=== PATIENT | male | born 1970 | race Two or more races ===

== ENCOUNTER → 2016-08-01 | Outpatient (REF) | payer OTHER | LOC: M SMT 11:42 | PROVIDERS: ATTEND Nurse Practitioner Family | DX: R36.1 Hematospermia (principal) ==

== ENCOUNTER → 2018-08-23 | Outpatient (REF) | payer OTHER ==
[2018-08-23 13:40] LABS: APPEARANCE, URINE CLEAR (CLEAR); BACTERIA, URINE AUTO NEGATIVE (NEGATIVE); BILIRUBIN, URINE AUTO NEGATIVE (NEGATIVE); BLOOD, URINE BLOOD NEGATIVE (NEGATIVE); COLOR, URINE YELLOW (YELLOW); GLUCOSE, URINE (UA) AUTO NEGATIVE (NEGATIVE); KETONE, URINE AUTO NEGATIVE (NEGATIVE); LEUKOCYTE ESTERASE, URINE AUTO NEGATIVE (NEGATIVE); NITRITE, URINE AUTO NEGATIVE (NEGATIVE); PROTEIN, URINE AUTO NEGATIVE (NEGATIVE); RBC, URINE AUTO 0 /HPF (0-3); SPECIFIC GRAVITY URINE AUTO 1.012 (1.002-1.035); SQUAMOUS EPITHELIAL CELL UR AU 0 /HPF (0-6); UROBILINOGEN, URINE AUTO 0.2 mg/dL (0.0-2.0); WBC, URINE AUTO 0 /HPF (0-3)
[2018-08-23 15:11] LABS: CHLAMYDIA DNA AMPLIFICATION NEGATIVE (NEGATIVE); GC DNA AMPLIFICATION NEGATIVE (NEGATIVE)
== END ==
LOC: M SMT 12:41
PROVIDERS: ATTEND Nurse Practitioner Family
DX: R36.1 Hematospermia (principal)

== ENCOUNTER → 2018-12-07 | Outpatient (REF) | payer OTHER ==
[2018-12-07 13:39] LABS: APPEARANCE, URINE CLEAR (CLEAR); BACTERIA, URINE AUTO NEGATIVE (NEGATIVE); BILIRUBIN, URINE AUTO NEGATIVE (NEGATIVE); BLOOD, URINE BLOOD NEGATIVE (NEGATIVE); COLOR, URINE YELLOW (YELLOW); GLUCOSE, URINE (UA) AUTO NEGATIVE (NEGATIVE); KETONE, URINE AUTO NEGATIVE (NEGATIVE); LEUKOCYTE ESTERASE, URINE AUTO NEGATIVE (NEGATIVE); NITRITE, URINE AUTO NEGATIVE (NEGATIVE); PROTEIN, URINE AUTO NEGATIVE (NEGATIVE); RBC, URINE AUTO 0 /HPF (0-3); SPECIFIC GRAVITY URINE AUTO 1.011 (1.002-1.035); SQUAMOUS EPITHELIAL CELL UR AU 0 /HPF (0-6); UROBILINOGEN, URINE AUTO 0.2 mg/dL (0.0-2.0); WBC, URINE AUTO 1 /HPF (0-3)
== END ==
LOC: M SMT 12:45
PROVIDERS: ATTEND Nurse Practitioner Family
DX: R36.1 Hematospermia (principal)
CPT/HCPCS: 81001; 87086; G0463

== ENCOUNTER → 2018-12-14 | Outpatient (CLI) | payer OTHER ==
--- NOTE | 2018-12-14 10:11 | REP ---
Clinical: Right flank pain. Technique: Real time lucas scale and color ultrasound examination using curved array transducer. Findings: Bilateral kidneys are normal in contour, size, echogenicity, and reniform shape without hydronephrosis, nephrolithiasis, cystic or renal mass lesion. No perinephric fluid collection. Right kidney measures 12.3 x 5.1 x 4.6 cm. Left kidney measures 13.6 x 4.8 x 6.0 cm. Bladder is normal and demonstrates bilateral ureteral jets. Impression: Normal renal ultrasound. Electronically Signed by Eusebio Nix MD 12/14/2018 10:03 A
== END ==
LOC: M RAD 09:11
PROVIDERS: ATTEND Nurse Practitioner Family
DX: R10.11 Right upper quadrant pain (principal)

== ENCOUNTER → 2019-07-12 | Outpatient (CLI) | payer OTHER ==
[~2019-07-12] MED LIST: PROHANCE 279.3MG/ML 15ML VIAL (A9576) As Ordered ONE; PROHANCE 279.3MG/ML 5ML VIAL (A9576) As Ordered ONE
--- NOTE | 2019-07-13 10:00 | REP ---
MRI PELVIS WITHOUT AND WITH IV GADOLINIUM: HISTORY: Recurrent hematospermia. No comparison pelvic imaging. TECHNIQUE: Axial, coronal, and sagittal imaging planes are utilized. T1- and T2-weighted scans were included with without fat saturation. Gadolinium enhancement dose of 20 mL of intravenous ProHance. MRI FINDINGS: Cortical and medullary bone signal intensity are normal in the proximal femurs and in the bony pelvic ring. There is some cellular marrow signal in the lower lumbar spine and upper sacrum. This is felt to be normal. No bony destructive lesion is appreciated. There is no evidence of pelvic mass or adenopathy. Urinary bladder is intact. No abdominal wall defect is seen. Seminal vesicles are symmetric with no evidence of seminal vesicle cyst. There are mild benign prostatic hypertrophy changes in the central prostate. There are small cystic changes in the left side of the prostate peripheral zone. No low T2 signal intensity mass lesion is seen in the prostate. Postcontrast images show no evidence of hypervascular change. Prostate dimensions are 4.6 x 3.6 x 4.6 cm. Calculated glandular volume 40.2 mL. There is no evidence of pelvic adenopathy. The floor of the pelvis and perineum are unremarkable. IMPRESSION: No mass or adenopathy seen. Electronically Signed by Shane Villalobos MD 07/13/2019 07:27 P
== END ==
LOC: M RAD 16:39
PROVIDERS: ATTEND Nurse Practitioner Family
DX: R36.1 Hematospermia (principal)
CPT/HCPCS: 72197; A9576